=== PATIENT | female | born 1995 | race Caucasian/White ===

== ENCOUNTER 2018-04-07 17:50 | Emergency (ER) | payer SELFPAY ==
[~2018-04-07 17:50] MED LIST: MOTRIN; TYLENOL
--- NOTE | 2018-04-07 18:16 | NUR ---
no answer to name in lobby
--- NOTE | 2018-04-07 18:43 | NUR ---
patient called, searched lobby and outside entrance of lobby, no answer.
--- NOTE | 2018-04-07 18:44 | NUR ---
PATIENT LEFT WITHOUT BEING SEEN BY DR. GARCIA. NO FURTHER CARE PROVIDED FOR PATIENT.
== END 2018-04-07 18:44 | disposition left against medical advice (07) ==
LOC: MED 17:50
DX: M79.646 Pain in unspecified finger(s) (principal); Z53.21 Procedure and treatment not carried out due to patient leaving prior to being seen by health care provider

== ENCOUNTER 2018-04-17 13:53 | Emergency (ER) | payer OTHER ==
[~2018-04-17] VITALS: Ht 157.5 cm; Wt 82.6 kg
[2018-04-17 14:10] VITALS: BP 139/82
--- NOTE | 2018-04-17 14:15 | NUR ---
pt stable for right now to be in lobby room, pt adviosed to notify staff if change in conditon or chest pain/palpitations.
--- NOTE | 2018-04-17 15:40 | NUR ---
PATIENT LEFT WITHOUT BEING SEEN BY DR. GARCIA. NO FURTHER CARE PROVIDED FOR PATIENT.
== END 2018-04-17 15:40 | disposition left against medical advice (07) ==
LOC: MED 13:53
DX: M79.644 Pain in right finger(s) (principal); Z53.21 Procedure and treatment not carried out due to patient leaving prior to being seen by health care provider

== ENCOUNTER 2021-04-26 14:41 | Emergency (ER) | payer OTHER ==
[~2021-04-26] VITALS: Ht 157.5 cm; Wt 81.6 kg
[2021-04-26 15:07] VITALS: BP 131/82
--- NOTE | 2021-04-26 15:54 | NUR ---
PT AMBULATED TO BED 5
[2021-04-26] MEDS ORDERED: KETOROLAC 30 MG/ML VIAL IM ONE (16:15)
--- NOTE | 2021-04-26 16:37 | NUR ---
25 Y/O F BIB SELF FROM HOME, PATIENT PRESENTS TO ED WITH R ELBOW PAIN THAT RADIATES TO WHOLE R UPPPER EXTREMITY. PT STATES SHE FELL OFF HER SKATEBOARD THREE DAYS AGO, DENIES LOC, SYNCOPE, HEAD INJURY, FELL ON R ARM AND HAS BEEN HAVING PAIN. CAP REFILL <3, PT IS ABLE TO FLEX AND EXTEND ARM, NO SWELLING AT SITE, NO LOSS OF SENSATION. DENIES N/V/D; SKIN IS PINK/WARM/DRY; AAOX4 WITH EVEN AND STEADY GAIT; LUNGS CLEAR BL; HR EVEN AND REGULAR; PT DENIES ANY FEVER, CP, SOB, OR COUGH AT THIS TIME; PATIENT STATES PAIN OF 10/10 AT THIS TIME; VSS; PATIENT POSITIONED FOR COMFORT; HOB ELEVATED; BEDRAILS UP X2; BED DOWN. ER MD MADE AWARE OF PT STATUS. PMH: CORTESIES ARGENIS
[2021-04-26] MEDS ORDERED: NAPR-54 PO (17:06)
--- NOTE | 2021-04-26 17:20 | NUR ---
Note millyone in EDM - 04/26/[address] [facility] [place] Patient discharged with v/s stable. Written and verbal after care instructions given and explained. Patient alert, oriented and verbalized understanding of instructions. Ambulatory with steady gait. All questions addressed prior to discharge. ID band removed. Patient advised to follow up with PMD. Rx of Naprosyn 500mg given. Patient educated on indication of medication including possible reaction and side effects. Opportunity to ask questions provided and answered.
[2021-04-26 17:25] VITALS: BP 119/82
--- NOTE | 2021-04-26 17:25 | NUR ---
Patient discharged with v/s stable. Written and verbal after care instructions given and explained. Patient alert, oriented and verbalized understanding of instructions. Ambulatory with steady gait. All questions addressed prior to discharge. ID band removed. Patient advised to follow up with PMD. Rx of Naproxen 500mg given. Patient educated on indication of medication including possible reaction and side effects. Opportunity to ask questions provided and answered.
== END 2021-04-26 17:25 | disposition home or self-care (01) ==
LOC: MED 14:41
DX: S62.616A Displaced fracture of proximal phalanx of right little finger, initial encounter for closed fracture (principal); S50.01XA Contusion of right elbow, initial encounter; S50.11XA Contusion of right forearm, initial encounter; S80.01XA Contusion of right knee, initial encounter; Z79.899 Other long term (current) drug therapy; W19.XXXA Unspecified fall, initial encounter; Y93.89 Activity, other specified; Y92.89 Other specified places as the place of occurrence of the external cause; Y99.8 Other external cause status
CPT/HCPCS: 29130; 73080; 73090; 73110; 73130; 73562; 96372; 99284; J1885

== ENCOUNTER 2021-09-11 23:15 | Emergency (ER) | payer OTHER ==
[~2021-09-11 23:15] MED LIST changes: +NAPR-54 PO
--- NOTE | 2021-09-11 23:35 | NUR ---
CALLED TO TRIAGE, NO ANSWER
--- NOTE | 2021-09-11 23:40 | NUR ---
CALLED TO TRIAGE, NO ANSWER
--- NOTE | 2021-09-11 23:54 | NUR ---
CALLED TO TRIAGE, NO ANSWER. LWBS
== END 2021-09-11 23:35 | disposition left against medical advice (07) ==
LOC: MED 23:15
DX: Z53.21 Procedure and treatment not carried out due to patient leaving prior to being seen by health care provider (principal)

== ENCOUNTER 2021-09-12 00:06 | Emergency (ER) | payer OTHER ==
[~2021-09-12] VITALS: Ht 160 cm; Wt 81.6 kg
[2021-09-12 00:23] VITALS: BP 105/58
--- NOTE | 2021-09-12 00:28 | NUR ---
PT TAKEN TO BED 9
--- NOTE | 2021-09-12 00:45 | NUR ---
REPORTS EYE DISCOMFORT WITHOUT BLURRED VISION. STATES IT WAS WHILE SHE WAS SLEEPING AND FEELS THOUGH SOMETHING IS IN HER EYE. DENIES ANY OTHER COMPLAINTS AT THS TIME.
--- NOTE | 2021-09-12 01:32 | NUR ---
Dr. Smith examining patient.
[2021-09-12] MEDS ORDERED: TETRACAINE 1% 2 ML AMP INJ ONE (01:35)
[2021-09-12] MEDS ORDERED: FLUORESCEIN OPTH STRIP 1 MG OP ONE (01:35)
--- NOTE | 2021-09-12 01:41 | NUR ---
OS 20/25 OD 20/25 OU 20/20 -1
[2021-09-12] MEDS ORDERED: TETRACAINE HCL/PF 0.5% OPTH 4 ML BTL ONE (01:43)
--- NOTE | 2021-09-12 02:12 | NUR ---
Patient discharged with v/s stable. Written and verbal after care instructions given and explained. Patient verbalized understanding. Ambulatory with steady gait. All questions addressed prior to discharge. Advised to follow up with PMD.
== END 2021-09-12 02:12 | disposition home or self-care (01) ==
LOC: MED 00:06
DX: H57.89 Other specified disorders of eye and adnexa (principal); Z79.1 Long term (current) use of non-steroidal anti-inflammatories (NSAID)
CPT/HCPCS: 99283; J3490

== ENCOUNTER 2021-09-24 03:08 | Emergency (ER) | payer OTHER ==
[~2021-09-24] VITALS: Ht 157.5 cm; Wt 81.6 kg
[2021-09-24 03:10] VITALS: BP 127/54
--- NOTE | 2021-09-24 03:10 | NUR ---
TO BED AMBULATORY
--- NOTE | 2021-09-24 03:43 | NUR ---
PT STATED HE WOULD JUST CHECK ON CAR AND WILL BE BACK.
--- NOTE | 2021-09-24 03:54 | NUR ---
25 YO M BIB SELF WITH C/C OF 10/10 LEFT KNEE NUMBNESS/PAIN S/P FALLING OFF SKATEBOARD X2DAYS AGO. PT IS ABLE TO AMBULATE. DISCOLORATION PRESENT. FULL ROM WITH PAIN. WARM TO TOUCH. ALL NEEDS MET AT THIS TIME. DENIES HX, RX AND ALLERGIES
[2021-09-24] MEDS ORDERED: KETOROLAC 30 MG/ML VIAL IM ONE (04:30)
[2021-09-24 05:17] VITALS: BP 127/54
[2021-09-25] MEDS ORDERED: ONDA-188 PO (02:26)
== END 2021-09-24 05:17 | disposition home or self-care (01) ==
LOC: MED 03:08
DX: S80.02XA Contusion of left knee, initial encounter (principal); Z79.899 Other long term (current) drug therapy; V00.131A Fall from skateboard, initial encounter; Y93.89 Activity, other specified; Y92.89 Other specified places as the place of occurrence of the external cause; Y99.8 Other external cause status
CPT/HCPCS: 73562; 96372; 99283; J1885; Q0092

== ENCOUNTER 2021-09-25 01:31 | Emergency (ER) | payer OTHER ==
[~2021-09-25] VITALS: Ht 157.5 cm; Wt 84.9 kg
[2021-09-25 01:40] VITALS: BP 132/89
--- NOTE | 2021-09-25 01:47 | NUR ---
PT IN LOBBY WAITING FOR BED.
[2021-09-25] MEDS ORDERED: ONDA-188 PO (02:26)
--- NOTE | 2021-09-25 02:37 | NUR ---
ERMD EXAMINED PT, NO NURSING INTERVENTIONS NEEDED.
[2021-09-25 02:39] VITALS: BP 132/89
== END 2021-09-25 02:39 | disposition home or self-care (01) ==
LOC: MED 01:31
DX: R11.0 Nausea (principal); F17.210 Nicotine dependence, cigarettes, uncomplicated
CPT/HCPCS: 81002; 81025; 99283

== ENCOUNTER 2022-01-17 02:47 | Emergency (ER) | payer OTHER ==
[~2022-01-17] VITALS: Ht 160 cm; Wt 83.9 kg
[~2022-01-17 02:47] MED LIST changes: +ONDA-188 PO
[2022-01-17 03:05] VITALS: BP 138/72
[2022-01-17] MEDS ORDERED: ACETAMINOPHEN EXTRA STRENGTH 500 MG TAB ONE (03:07)
[2022-01-17] MEDS ORDERED: IBUP-2218 PO (03:10)
[2022-01-17] MEDS ORDERED: ACETAMINOPHEN EXTRA STRENGTH 500 MG TAB PO ONE (03:10)
== END 2022-01-17 03:15 | disposition home or self-care (01) ==
LOC: MED 02:47
DX: S76.111A Strain of right quadriceps muscle, fascia and tendon, initial encounter (principal); X58.XXXA Exposure to other specified factors, initial encounter; Y93.89 Activity, other specified; Y92.9 Unspecified place or not applicable; Y99.8 Other external cause status
CPT/HCPCS: 99282